=== PATIENT | male | born 2000 | race Caucasian/White ===

== ENCOUNTER 2025-09-04 14:03 | Emergency (ER) | payer SELFPAY ==
[~2025-09-04] VITALS: Ht 162.6 cm; Wt 55.0 kg
[2025-09-04 14:04] VITALS: O2SAT 100
[2025-09-04] MEDS ORDERED: NALO4SPR BOTHNSTRLS (15:28)
[2025-09-04 16:04] VITALS: BP 126/85; PULSE 97; RESP 20; TEMP 36.5; O2SAT 100
== END 2025-09-04 16:06 | disposition home or self-care (01) ==
LOC: ER 14:03
DX: T40.2X1A Poisoning by other opioids, accidental (unintentional), initial encounter (principal); F17.200 Nicotine dependence, unspecified, uncomplicated; X58.XXXA Exposure to other specified factors, initial encounter; Y93.89 Activity, other specified; Y92.89 Other specified places as the place of occurrence of the external cause; Y99.8 Other external cause status
CPT/HCPCS: 99283